=== PATIENT | male | born 1980 | race Asian ===

== ENCOUNTER → 2019-04-14 | Outpatient (CLI) | payer BC ==
--- NOTE | 2019-04-14 12:08 | RADIOLOGY REPORT (SQ) ---
EXAM DESCRIPTION: U/S THYROID/SFT TISS HD NECK COMPLETED DATE/TIME: 04/14/2019 11:48 am REASON FOR STUDY: ENLARGED THYROID (E04.9) E04.9 NONTOXIC GOITER, UNSPECIFIED COMPARISON: None. TECHNIQUE: Dynamic and static duke-scale images acquired of the thyroid gland. Selected additional c olor/power Doppler images recorded. All images stored to PACS. LIMITATIONS: None. FINDINGS: RIGHT LOBE: Normal size, 3.9 x 1.5 x 1.7 cm in size. Homogeneous echotexture. No cystic or solid masses. LEFT LOBE: Normal size, 5.5 x 1.8 x 1.6 cm in size. Homogeneous echotexture. No 5 mm left upper oleg e thyroid benign colloid cyst. ISTHMUS: Normal size, less than 2 mm in thickness. Homogeneous echotexture. No cystic or solid mass es. OTHER: Patient indicates a small palpable abnormality in the right submandibular triangle. Ultrasoun d of this area demonstrates a 9 x 8 x 5 mm benign-appearing lymph node with central hilar fat. IMPRESSION: ESSENTIALLY NORMAL THYROID ULTRASOUND. TECHNICAL DOCUMENTATION: JOB ID: [id number] [employer]- All Rights Reserved Reading location - IP/workstation name: [email or web address]
== END ==
LOC: RAD 10:15
PROVIDERS: ATTEND Family Medicine
DX: E04.9 Nontoxic goiter, unspecified (principal)
CPT/HCPCS: 76536